=== PATIENT | female | born 1960 | race Caucasian/White ===

== ENCOUNTER → 2016-11-14 | Outpatient (CLI) | payer BC ==
--- NOTE | 2016-11-15 13:03 | MM ---
Reason for exam: screening (asymptomatic). Last mammogram was performed 1 year and 1 month ago. History: Patient is postmenopausal. Taking estrogen for 7 years beginning at age 46. Physical Findings: A clinical breast exam by your physician is recommended on an annual basis and results should be correlated with mammographic findings. MG 3D Screening Mammo W/Cad Bilateral CC and MLO view(s) were taken. Prior study comparison: October 14, 2015, bilateral MG 3d screening mammo w/cad. October 08, 2014, bilateral MG screening mammo w CAD. The breast tissue is almost entirely fat. No significant changes when compared with prior studies. ASSESSMENT: Negative, BI-RAD 1 RECOMMENDATION: Routine screening mammogram of both breasts in 1 year.
== END | disposition home or self-care (01) ==
LOC: RADMAMWWP 16:23
PROVIDERS: ATTEND Family Medicine
DX: Z12.31 Encounter for screening mammogram for malignant neoplasm of breast (principal)
CPT/HCPCS: 77063; G0202

== ENCOUNTER → 2016-12-26 | Outpatient (CLI) | payer BC ==
--- NOTE | 2016-12-26 12:42 | MR ---
EXAMINATION TYPE: MR knee RT wo con DATE OF EXAM: 12/26/2016 COMPARISON: NONE HISTORY: rt knee pain per order. Inner knee pain with swelling for 4 weeks per patient. TECHNIQUE: Multiplanar, multisequence images of the knee is performed without IV contrast. FINDINGS: MEDIAL MENISCUS: Anterior horn is intact without tear. Oblique increased signal posterior horn of med ial meniscus extends to inferior articular surface seen best on sagittal image 8, findings are consis tent with full-thickness meniscal tear. Slight medial extrusion of medial meniscus is present. LATERAL MENISCUS: Anterior and posterior horns are intact without tear. CRUCIATE LIGAMENTS: The anterior and posterior cruciate ligaments are intact and unremarkable. COLLATERAL LIGAMENTS: The medial collateral ligament and lateral collateral ligament complex are inta ct. Increased fluid signal surrounds medial collateral ligament particularly mid to distal aspects. EXTENSOR MECHANISM: Visualized quadriceps and patellar tendons are intact. EFFUSION: There is moderate size suprapatellar joint effusion. POPLITEAL CYST: There is moderate size multi septated popliteal/long cyst measuring just over 6 cm o n long axis on sagittal image 12. TRICOMPARTMENT SPACES: Mild tricompartment joint space loss is present. No significant spurring is se en. CARTILAGE: Small fissuring or chondromalacia patella is present on axial image 15 otherwise tricompar tment articular cartilage is fairly well-maintained. BONE MARROW SIGNAL: No focal abnormal marrow signal is appreciated. OTHER: No additional significant abnormality is appreciated. IMPRESSION: 1. Oblique full-thickness tear posterior horn of medial meniscus. 2. Moderate MCL sprain injury. 3. Moderate suprapatellar joint effusion. 4. Moderate-sized popliteal cyst. 5. Mild tricompartment degenerative changes.
== END | disposition home or self-care (01) ==
LOC: RADMRIMAIN 10:38
PROVIDERS: ATTEND Orthopaedic Surgery
DX: S83.241A Other tear of medial meniscus, current injury, right knee, initial encounter (principal); S83.411A Sprain of medial collateral ligament of right knee, initial encounter; M71.21 Synovial cyst of popliteal space [Baker], right knee; M25.861 Other specified joint disorders, right knee

== ENCOUNTER → 2017-01-10 | Outpatient (CLI) | payer BC ==
[2017-01-10 14:27] LABS: Basophils # (A) 0.1 k/uL (0-0.2); Basophils % (A) 1 %; CH 32.5; CHCM 35.2; Eosinophils # (A) 0.1 k/uL (0-0.7); Eosinophils % (A) 2 %; HCT 38.6 % (34.0-46.0); HGB 13.9 gm/dL (11.4-16.0); Luc # (Auto) 0.15; Luc % (Auto) 2; Lymphocytes # (A) 2.2 k/uL (1.0-4.8); Lymphocytes % (A) 34 %; MCH 33.3 pg (25.0-35.0); MCHC 35.9 g/dL (31.0-37.0); MCV 92.7 fL (80.0-100.0); Mean Platelet Volume 7.1; Monocytes # (A) 0.3 k/uL (0-1.0); Monocytes % (A) 4 %; Neutrophils # (A) 3.7 k/uL (1.3-7.7); Neutrophils % (A) 57 %; RBC 4.17 m/uL (3.80-5.40); RDW 13.4 % (11.5-15.5); WBC 6.4 k/uL (3.8-10.6); WBC (Perox) 6.67
[2017-01-10 14:36] LABS: Potassium 3.7 mmol/L (3.5-5.1)
== END | disposition home or self-care (01) ==
LOC: LABPAT 13:48
PROVIDERS: ATTEND Orthopaedic Surgery
DX: Z01.812 Encounter for preprocedural laboratory examination (principal)
CPT/HCPCS: 80051; 85025

== ENCOUNTER 2017-01-25 08:02 | Day surgery (SDC) | payer BC ==
[2017-01-22 15:39] VITALS: BMI 35.9
[~2017-01-25 08:02] MED LIST: DEXAMETHASONE SOD PHOSPHATE 10 MG/ML 1 ML VIAL IV ONE; LACTATED RINGERS 1,000 ML IV SCH; SCOPOLAMINE 1.5MG/72HR PATCH TRANSDERM ONE; ceFAZolin 2 GM in SODIUM CHLORIDE 0.9% 100 ML IVPB ONE
--- NOTE | 2017-01-25 08:18 | HP ---
CHIEF COMPLAINT: Right knee pain. 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 She notes medial pain and catching, worse with activity. It does slow her down and limits her normal function activities. She has tried medications and injection with only partial temporary relief. PAST MEDICAL HISTORY: Significant for hypertension and hypothyroidism. PAST SURGICAL HISTORY: Significant for hysterectomy in addition to left knee arthroscopy. CURRENT MEDICATIONS: 1. Levothyroxine. 2. Pravastatin. 3. [place]. She denies drug allergies. FAMILY HISTORY: Significant for diabetes, heart disease and hypertension. SOCIAL HISTORY: Significant for social alcohol use. Sixteen point review of systems otherwise reviewed and is noncontributory. On examination, the patient is approximately 5 feet 4 inches, 215 pounds of endomorphic habitus. HEENT exam is nonfocal. Neck is supple. She has painless passive motion of the right hip. Straight leg raise is negative. Active motion of right knee is minus 6 to 120 degrees of flexion. She has a mild effusion. She is tender about the medial joint line. Collaterals are stable. Chandni's negative. Luana's elicits medial pain. Her distal neurovascular exam appears to be intact in the right lower extremity. MRI report 12/26/2016 of the right knee shows a posterior medial meniscal tear. IMPRESSION: 1. Right knee symptomatic medial meniscal tear. 2. Increased body mass index. RECOMMENDATIONS: I talked to the patient at length regarding her treatment options. At this point, she is having significant pain and mechanical symptoms despite conservative measures. After thorough discussion, she options to proceed with surgery. We will plan to proceed with arthroscopic evaluation with probable partial medial meniscectomy. Risks and benefits were discussed at length in layman's terms. We will likely perform that as an outpatient procedure. SALLY
[2017-01-25] MEDS ORDERED: LIDOCAINE 1% 20 ML VIAL (10MG/ML) FOR IV START INTRADERMA ONE (08:32)
[2017-01-25] MEDS: ONDANSETRON 4 MG/2 ML VIAL IVP ONE ×2 (08:33→11:08)
[2017-01-25] MEDS ORDERED: SUCCINYLCHOLINE CHLORIDE 100 MG/5 ML SYR IV ONE (09:38)
[2017-01-25] MEDS ORDERED: LIDOCAINE 1% INJ 10MG/ML (20 ML MDV) ONE (09:38)
[2017-01-25] MEDS ORDERED: MIDAZOLAM 2 MG/2 ML VIAL ONE (09:38)
[2017-01-25] MEDS ORDERED: KETOROLAC 30 MG/ML 1 ML VIAL ONE (09:38)
[2017-01-25] MEDS ORDERED: PROPOFOL 10 MG/ML 20 ML VIAL IV ONE (09:38)
[2017-01-25] MEDS ORDERED: fentaNYL (PF) 50 MCG/ML 2 ML AMP ONE (09:38)
--- NOTE | 2017-01-25 10:21 | P.OP ---
Date of Procedure: 01/25/17 Preoperative Diagnosis: Right knee internal derangement Postoperative Diagnosis: Right knee posterior medial meniscal tear/reactive synovitis of the medial and lateral compartments Procedure(s) Performed: Right knee arthroscopic partial medial meniscectomy/partial synovectomy of the medial and lateral compartments Implants: Anesthesia: JEFFA Surgeon: Loki Lindsey Estimated Blood Loss (ml): 10 Pathology: none sent Condition: stable Disposition: PACU Indications for Procedure: The patient's a 56-year-old female who presents with progressive right knee pain and mechanical symptoms despite conservative treatment. Clinically and by MRI she was noted of evidence of a symptomatic medial meniscal tear. A discussion of the risks and benefits of operative intervention versus continued conservative measures was made with the patient. She opted to proceed with surgery. Operative risks to include infection, neurovascular injury, development of blood clots, possible incomplete resolution of symptoms, possible worsening symptoms and need for subsequent procedures was discussed. Informed consent was obtained. Operative Findings: As below Description of Procedure: The patient was brought to the operating room, and after induction of general anesthesia I examined the right knee. Collaterals were stable, Chandni was negative, and posterior drawer was negative. The right lower extremity was prepped and draped in normal fashion. A superior lateral portal was made through a 3 mm skin incision superior and lateral to the patella. This was used for outflow. A moderate effusion was encountered. A lateral portal was made through a 5 mm vertical skin incision lateral to the patellar tendon above the joint line. Diagnostic arthroscopy was performed. A medial portal was made through a similar incision medial to the patella tendon above the joint line. On inspection of the medial compartment, she was noted of complex tear involving the posterior horn of the medial meniscus in the white-white junction. This was not amenable to repair. This was debrided back to stable base with straight baskets and a motorized shaver. The edges were contoured. Grade 2 chondral changes were noted involving the distal lateral portion of the medial femoral condyle. Reactive synovitis involving the anterior medial and lateral compartments was noted and debrided with a motorized shaver. On inspection the notch, the anterior cruciate ligament appeared to be intact. On inspection of the lateral compartment no significant meniscal or cartilage pathology was noted. On inspection of the patellofemoral articulation, there was some chondromalacia however no loose chondral fragment. The gutters were clear debris. The knee was then thoroughly irrigated. The portals were closed with Steri-Strips. A sterile dressing was applied in addition to a compression stocking. The patient was awoken from general anesthesia and transferred to recovery room in good condition. Blood loss was estimated at 10 mL. No complications were incurred.
[2017-01-25] MEDS: HYDROmorphone 1 MG/ML 1 ML SYRINGE IVP PRN ×6 (10:25→11:01)
[2017-01-25] MEDS: MIDAZOLAM 2 MG/2 ML VIAL IV PRN ×2 (10:30→10:43)
[2017-01-25 10:35] VITALS: RESP 16; TEMP 97.8
[2017-01-25] MEDS ORDERED: SODIUM CHLORIDE 0.9% 1,000 ML IV ONE (10:43)
[2017-01-25] MEDS ORDERED: HYDROcodone/APAP 5-325MG 1 EACH TAB PO ONE (11:45)
[2017-01-25 13:36] VITALS: BP 137/75; PULSE 70
== END 2017-01-25 14:10 | disposition home or self-care (01) ==
LOC: OR 08:02
PROVIDERS: ATTEND Orthopaedic Surgery
DX: S83.241A Other tear of medial meniscus, current injury, right knee, initial encounter (principal); Y93.89 Activity, other specified; M65.861 Other synovitis and tenosynovitis, right lower leg; M25.461 Effusion, right knee; I10 Essential (primary) hypertension; E03.9 Hypothyroidism, unspecified; E78.5 Hyperlipidemia, unspecified; Z86.718 Personal history of other venous thrombosis and embolism; Z79.891 Long term (current) use of opiate analgesic; Z79.1 Long term (current) use of non-steroidal anti-inflammatories (NSAID); Z79.899 Other long term (current) drug therapy; Z87.891 Personal history of nicotine dependence
CPT/HCPCS: 29881; 29876; J2250; J1100; J0690; J2405; J2001; J3010; J1885; J1170; J0330; J2704

== ENCOUNTER → 2017-07-18 | Outpatient (CLI) | payer BC ==
--- NOTE | 2017-07-18 08:23 | MR ---
EXAMINATION TYPE: MR thoracic spine wo con DATE OF EXAM: 07/18/2017 COMPARISON: NONE HISTORY: 56-year-old female Back pain TECHNIQUE: Multiplanar, multisequence images of the thoracic spine were obtained without IV contrast. FINDINGS: Vertebral body heights are preserved and alignment is maintained. Vertebral mild disc desiccation throughout. No large focal disc herniation. However, tiny disc protrusions are present, such as at T5-T6, T7-T8, T11-T12, and T12-L1. No significant spinal canal stenosis. Scattered facet arthropathies present. Changes result in mild neuroforaminal narrowing on the left at T6-T7 and T7-T8. Scattered fatty matrix hemangiomas are present such as within T3, T5, T7, T8, and T10 vertebral glendy s. No suspicious bone marrow replacement. No prevertebral or paravertebral soft tissue abnormality seen. Normal course and caliber of the thoracic spinal cord. Some artifact projects over the upper third th oracic cord without any abnormal cord signal confirmed on the axial series. IMPRESSION: 1. Mild multilevel degenerative disc disease. There are a few tiny disc protrusions without spinal ca nal stenosis. 2. Mild scattered facet arthropathy. Changes result in mild left-sided neuroforaminal stenosis at C6- C7 and T7-T8. 3. Incidentally, the T2 sagittal counting series shows a focal disc herniation or disc osteophyte com plex, largest at C5-C6 impressing on the ventral cervical cord.
== END | disposition home or self-care (01) ==
LOC: RADMRIMAIN 07:08
PROVIDERS: ATTEND Family Medicine
DX: M51.34 Other intervertebral disc degeneration, thoracic region (principal); M51.24 Other intervertebral disc displacement, thoracic region; M46.94 Unspecified inflammatory spondylopathy, thoracic region; M99.72 Connective tissue and disc stenosis of intervertebral foramina of thoracic region
CPT/HCPCS: 72146

== ENCOUNTER → 2017-08-02 | Outpatient (CLI) | payer BC ==
--- NOTE | 2017-08-02 12:15 | BD ---
EXAMINATION TYPE: MG DEXA axial skeleton. DATE OF EXAM: 08/02/2017 COMPARISON: NONE CLINICAL HISTORY: M85.88 Disorder of bone Height: 64 Weight: 200.7 FRAX RISK QUESTIONS: Alcohol (3 or more units per day): no Family History (Parent hip fracture): no Glucocorticoids (More than 3mos): no (Ex: prednisone, prednisolone, methylprednisolone, dexamethasone, and hydrocortisone). History of Fracture in Adulthood: no Secondary Osteoporosis: 1. Type 1 Diabetes: no 2. Hyperthyroidism: no 3. Menopause before 45: no 4. Malnutrition: no 5. Chronic liver disease: no Rheumatoid Arthritis: no Current Tobacco Use: no RISK FACTORS HISTORY OF: Hip Fracture (Right/Left): no Spine Fracture: no History of Wrist Fracture: no Surgery to Spine/Hip(right/left)/Wrist (right/left): no Family History of Osteoporosis: no Active: yes Diet low in dairy products/other sources of calcium: no Postmenopausal woman: age 46 complete hysterectomy Lost more than 2 inches in height since high school: no Frequent falls: no Poor Health: no Hyperparathyroidism: no Adrenal Insufficiency: no MEDICATIONS: synthroid- 10 years prevastatin, hydrochloride, Additional History: EXAM MEASUREMENTS: Bone mineral densitometry was performed using the [employer] System. Bone mineral density as measured about the Lumbar spine is: ----- L1-L4(G/cm2): 1.266 T Score Values are as follows: ----- L2: 0.3 ----- L3: 1.5 ----- L4: 1.2 ----- L1-L4: 0.7 Bone mineral density baseline Bone mineral density about the R hip (g/cm2): 0.908 Bone mineral density about the L hip (g/cm2): 0.935 T Score values are as follows: -----R Neck: -0.9 -----L Neck: -0.7 -----R Total: -0.1 -----L Total: 0.1 Bone mineral density baseline IMPRESSION: No evidence for osteoporosis or osteopenia. NOTE: T-SCORE=SD OF THE YOUNG ADULT MEAN.
== END | disposition home or self-care (01) ==
LOC: RADBDWWP 09:52
PROVIDERS: ATTEND Family Medicine
DX: M85.88 Other specified disorders of bone density and structure, other site (principal)
CPT/HCPCS: 77080

== ENCOUNTER → 2017-10-01 | Outpatient (CLI) | payer BC ==
--- NOTE | 2017-10-01 13:50 | MR ---
EXAMINATION TYPE: MR cervical spine wo con DATE OF EXAM: 10/01/2017 COMPARISON: NONE HISTORY: 56-year-old female with pain, Cervicalgia / Radiculopathy, cervical TECHNIQUE: Multiplanar, multisequence images of the cervical spine were acquired. Findings: No craniocervical junction abnormality, predental space widening, or prevertebral soft tissue swellin g. Normal alignment of the cervical spine. Scattered facet and uncovertebral joint degenerative change. Variable mild to moderate disc desiccati on throughout. Disc osteophyte complex present particularly at C5-C6 and C6-C7. Findings are superimposed on a mild congenital spinal canal stenosis with AP canal dimension of 1 cm. At C2-C3, mild facet arthropathy without significant canal or foraminal stenosis. C3-C4, there is facet arthropathy and right-sided uncovertebral joint spurring. Changes result in mil d right-sided neural foraminal stenosis. Mild posterior disc bulge accentuates the mild canal stenosi s. At C4-C5, posterior disc bulge with facet degenerative change. There is a mild overall spinal canal s tenosis with abutment and slight indentation of the ventral cord but no vaishnavi canal compromise. Mild right-sided neural foraminal stenosis. At C5-C6, there is facet and uncovertebral joint degenerative change with disc osteophyte complex and superimposed large left paracentral disc extrusion. This contributes to a moderate spinal canal sten osis with AP canal dimension of 5.8 mm prominently indenting the ventral cord especially the left lat eral ventral cord. There is moderate right and mild left neuroforaminal stenosis. At C6-C7, broad-based disc osteophyte complex contiguous with uncovertebral joint arthropathy. Additi onal facet degenerative change. Changes cause a mild to moderate overall spinal canal stenosis. There is abutment of the ventral cord without cord deformity. Mild to moderate left and moderate right mane ral foraminal stenosis. At C7-T1, facet degenerative change without significant canal or foraminal stenosis. No prevertebral or paravertebral soft tissue abnormality seen. IMPRESSION: 1. Moderate degenerative disc disease. Additional scattered facet and uncovertebral joint arthropathy . Changes are superimposed on a mild congenital spinal canal stenosis. 2. Broad-based disc osteophyte complex with a large superimposed left paracentral disc extrusion at C 5-C6 contributes to moderate spinal canal stenosis (AP canal dimension narrowed to 5.8 mm). There is prominent indentation of the ventral cord here. No myelopathic cord signal change. 3. Moderate right and mild left neuroforaminal stenosis at this level. 4. Broad-based disc osteophyte complex at C6-C7 contribute to a mild to moderate spinal canal stenosi s. Mild to moderate left and moderate right neural foraminal stenosis.
== END | disposition home or self-care (01) ==
LOC: RADMRIMAIN 12:01
PROVIDERS: ATTEND Family Medicine
DX: M48.02 Spinal stenosis, cervical region (principal); M99.71 Connective tissue and disc stenosis of intervertebral foramina of cervical region; M50.11 Cervical disc disorder with radiculopathy, high cervical region; M50.10 Cervical disc disorder with radiculopathy, unspecified cervical region; M46.92 Unspecified inflammatory spondylopathy, cervical region
CPT/HCPCS: 72141

== ENCOUNTER → 2017-11-07 | Outpatient (CLI) | payer BC ==
[2017-11-07 13:17] VITALS: BP 148/86; PULSE 86; RESP 16
--- NOTE | 2017-11-07 14:04 | P.CON ---
Consult Note - . Consult date: 11/07/17 Assessment/Plan:: History and physical: This is a 57-year-old female who presents as a new patient to the [facility] pain clinic. Patient was referred by her primary care doctor. Patient's chief complaint is cervical spine pain radiating down her left arm. Patient states that she has noticed the pain for the past 4-5 months and has progressively been getting worse. Patient has noted that she has some mild left arm weakness with certain activities, she has radiating pain down into her fingers 1-2 times daily. She states the pain as a 5/10 at its worse and gets better with rest and massage. Patient's PCP prescribes her Motrin 600 mg to be taken one to 3 times daily which helps. Her PCP referred her to our clinic in order to do a series of cervical epidural steroid injections. Patient had an MRI of her cervical spine done recently that showed disc osteophyte complex superimposed on a large left paracentral disc extrusion with moderate spinal canal stenosis. These MRI findings correlate with patient's physical exam findings. Discussed cervical epidural injections with the patient the risks and benefits and also discussed with her that if her condition did not improve with the series of epidural injections we would likely refer her for surgical consultation. Patient understands this plan and wishes to proceed. Patient also has complaints of right knee pain, and was diagnosed with right knee osteoarthritis by her PCP. She has had steroid injections are needed have provided her with good relief. Pain in her knee is a 5/10 in severity and she describes it as throbbing, aching, and tight. Patient does not have any complaints of lower shoddy weakness, spasticity, flaccid paralysis, no bowel or bladder dysfunction, and no cauda equina signs or symptoms. In addition to above, 13-point review of systems is also negative for chest pain , shortness of breath, changes in vision, changes in hearing, new onset weakness , abdominal pain, diarrhea, extreme fatigue, malaise, fever, skin changes, homicidal or suicidal ideation, or bowel or bladder incontinence. 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 Assessment: 1. Cervical spinal stenosis 2. Cervical radiculopathy 3. Right knee osteoarthritis Plan: 1. Explanation: Diagnoses, prognoses, and multiple treatment options including but not limited to physical therapy, interventional therapies, adjuvant medical therapies, narcotic medication therapies, and surgery were discussed with the patient and all questions were answered to the patient's satisfaction. 2. Opioid agreement: No opiates prescribed 3. Counseling: The patient was counseled extensively on BODY MASS INDEX, EXERCISE. Specifically, the patient was instructed regarding, obesity, and exercise in the context of both chronic pain and overall health. 4. Procedures: Cervical epidural steroid injection C6-C7 5. Consultations: Possible future referral to Dr. Carias 6. Investigations: Maps reviewed and appropriate 7. Medications: Motrin 600 mg from PCP, prescribed Neurontin 300 mg daily at bedtime 8. Disposition: f/u for procedure as scheduled PQRS measures: 1-Patient's medications are documented in the chart. 2-Tobacco use is negative, counseling given 3-Patient has not had a pneumococcal vaccine. 4-Advanced care planning discussed, patient unable to give. 5-Opioid contract signed with the patient. 6-Pain positive, follow-up visit or procedure scheduled 7-Patient's blood pressure measured and documented, and WNL. 8-Patient's weight was measured, and body mass index ABOVE the normal limits, and counseling was done. Patient instructed to follow up with PCP. 9-Patient WAS NOT identified as an unhealthy alcohol user.
== END | disposition home or self-care (01) ==
LOC: PNWHC3 12:32
PROVIDERS: ATTEND Anesthesiology
DX: M48.02 Spinal stenosis, cervical region (principal); M54.12 Radiculopathy, cervical region; M17.11 Unilateral primary osteoarthritis, right knee; Z79.1 Long term (current) use of non-steroidal anti-inflammatories (NSAID)
CPT/HCPCS: 99211

== ENCOUNTER 2017-11-12 07:07 | Day surgery (SDC) | payer BC ==
[2017-11-07 15:39] VITALS: BMI 35.5
[2017-11-12] MEDS ORDERED: LACTATED RINGERS 1,000 ML IV SCH (07:30)
[2017-11-12] MEDS ORDERED: LACTATED RINGERS 1,000 ML IV ONE (08:25)
[2017-11-12] MEDS ORDERED: LIDOCAINE 1% 20 ML VIAL (10MG/ML) FOR IV START INTRADERMA ONE (08:26)
[2017-11-12 08:34] VITALS: RESP 18; TEMP 98.3
[2017-11-12] MEDS ORDERED: KETOROLAC 30 MG/ML 1 ML VIAL IVP STA (09:03)
[2017-11-12 09:34] VITALS: BP 144/80; PULSE 75
[2017-11-12] MEDS ORDERED: IV FLUID CONTINUATION 1,000 ML IV ONE (09:56)
--- NOTE | 2017-11-12 10:52 | P.PN ---
Progress Note - Text Progress Note Date: 11/12/17 PREOPERATIVE DIAGNOSIS: Cervical radiculopathy. POSTOPERATIVE DIAGNOSIS: Cervical radiculopathy. PROCEDURE 1. Cervical epidural steroid injection under fluoroscopic guidance, C7-T1 level. 2. Cervical epidurogram. ANESTHESIA: Local anesthesia with 1% lidocaine and IV sedation with versed/ fentanyl. EBL: Minimal PROCEDURE INDICATION: The patient with neck pain and radiculitis unresponsive to conservative treatment consents for procedure, JUAN #1 today. No use of blood thinners. PROCEDURE DESCRIPTION / TECHNIQUE: The patient was seen and identified in the preoperative area. Risks, benefits, complications, and alternatives were discussed with the patient (including but not limited to incomplete pain relief, bleeding, infection, nerve damage, and allergies to medications), the patient agreed to proceed with the procedure and signed the consent after all questions were answered. Patient was taken to the OR and time out was completed to verify proper patient , position, laterality of pain, and allergies. Pt was placed in the prone position. A pillow was placed under the patients chest to increase the cervical interlaminar space. The cervical area was prepped and draped in the usual sterile fashion. Critical pause was taken. Vital signs were closely monitored during the procedure. Conscious sedation was used during the procedure to decrease patients anxiety. Using anterior-posterior fluoroscopy, the C7-T1 interlaminar space was identified and the skin over this site was marked and then infiltrated with 1% lidocaine subcutaneously in a paramedian fashion. Subsequently, a 20-gauge 3-1/2 -inch Tuohy epidural needle was inserted and advanced toward the epidural space by means of the loss of resistance technique and guided by AP and lateral fluoroscopy. After negative aspiration for blood or CSF and in the absence of paresthesias, the correct needle position in the epidural space was verified with the injection of 1 mL of the water soluble contrast dye Isovue 200 and observing an excellent epidurogram with the epidural spread of the dye, after negative aspiration for blood and CSF and in the absence of paresthesias. Again after negative aspiration, a 4 ml mixture containing 20 mg of Decadron and 2 ml of preservative free Normal Saline solution was injected and a washout of epidurogram was seen. Needle was withdrawn intact, skin was cleansed, and bandages were applied. COMPLICATIONS: None COMMENTS: DISPOSITION / PLANS: The patient was placed in a supine position and transferred to the recovery area in a stable condition for observation. There was no evidence of upper extremity motor or sensory deficit after the procedure. Patient was discharged from the recovery room after meeting discharge criteria. Home discharge instructions were given to the patient by the staff. The patient was reexamined prior to discharge. The patient will schedule a repeat procedure in 3-4 weeks.
--- NOTE | 2017-11-13 13:59 | FL ---
Fluoroscopy INDICATION: Pain FINDINGS: Fluoroscopy time: 22 seconds. Images obtained: 3. IMPRESSIONS: 1. Documentation of fluoroscopy.
== END 2017-11-12 09:57 | disposition home or self-care (01) ==
LOC: ORPAIN 07:07
PROVIDERS: ATTEND Anesthesiology
DX: M54.12 Radiculopathy, cervical region (principal); Z79.1 Long term (current) use of non-steroidal anti-inflammatories (NSAID); M48.02 Spinal stenosis, cervical region; M17.11 Unilateral primary osteoarthritis, right knee
CPT/HCPCS: 62321; J2250; J1100; J3010; J1885; Q9966; 99152

== ENCOUNTER → 2017-12-03 | Outpatient (CLI) | payer BC ==
--- NOTE | 2017-12-03 13:04 | P.PN ---
Progress Note - Text Progress Note Date: 12/03/17 Patient returns for followup for chronic neck and right shoulder pain with radiation to XXX. Patient recently underwent JUAN #1, which has provided relief for interval since procedure in LUE, but patient still has right shoulder pain. Patient continues on occasional [place] medications for pain with good relief. Patient denies adverse drug effects from medications. Today, pt denies new-onset weakness, bowel/bladder incontinence, or any other signs or symptoms of cauda equina syndrome. There are no signs of acute intoxication, and no indications of medication diversion or overuse. In addition to above, 13-point review of systems is also negative for chest pain , shortness of breath, changes in vision, changes in hearing, new onset weakness , abdominal pain, diarrhea, extreme fatigue, malaise, fever, skin changes, homicidal or suicidal ideation, or bowel or bladder incontinence. Vital Signs: Reviewed in EMR Gen: WDWN, AAOx3, NAD HEENT: NCAT, EOMI, hearing grossly normal Pulm: resp unlabored Abd: soft, NT, ND Neck: supple, trachea midline ROM in flexion cervical spine: reduced ROM in extension cervical spine: reduced Cervical paravertebral tenderness: + Cervical Facet tenderness: + bilateral Spurling's: +LUE TTP over R scapula Imaging: Reviewed in EMR Assessment: 1. cervical radiculitis 2. myofascial pain syndrome 3. chronic pain syndrome Plan: 1. Explanation: Opioid and psychological risk scores were reviewed. Diagnoses , prognoses, and multiple treatment options including but not limited to physical therapy, interventional therapies, adjuvant medical therapies, narcotic medication therapies, and surgery were discussed with the patient and all questions were answered to the patient's satisfaction. 2. Opioid agreement: none prescribed 3. Counseling: The patient was counseled extensively on SMOKING CESSATION, BODY MASS INDEX, EXERCISE. Specifically, the patient was instructed regarding the importance of smoking cessation, weight control, and exercise in the context of both chronic pain and overall health. 4. Procedures: R shoulder TPI 5. Consultations: None 6. Investigations: UDS not done, MAPS queried and appropriate 7. Medications: none prescribed, patient told to stop gabapentin 8. Morphine equivalents per day prescribed: zero 9. Disposition: f/u for procedure as scheduled
[2017-12-03 13:16] VITALS: BP 137/90; PULSE 68; RESP 16
== END | disposition home or self-care (01) ==
LOC: PNWHC3 11:56
PROVIDERS: ATTEND Anesthesiology
DX: G89.4 Chronic pain syndrome (principal); M54.2 Cervicalgia; M25.511 Pain in right shoulder; M54.12 Radiculopathy, cervical region; M79.1 Myalgia; Z98.890 Other specified postprocedural states; Z79.891 Long term (current) use of opiate analgesic
CPT/HCPCS: 99211

== ENCOUNTER 2017-12-31 07:27 | Day surgery (SDC) | payer BC ==
[2017-12-25 09:54] VITALS: BMI 32.9
[2017-12-31] MEDS ORDERED: LACTATED RINGERS 1,000 ML IV SCH (07:45)
[2017-12-31 08:18] VITALS: TEMP 97.6
[2017-12-31] MEDS ORDERED: LIDOCAINE 1% 20 ML VIAL (10MG/ML) FOR IV START INTRADERMA ONE (08:26)
--- NOTE | 2017-12-31 09:06 | P.PCN ---
Date of Procedure: 12/31/17 Surgeon: Stephen Jacobson Pathology: none sent Condition: stable Disposition: PACU Description of Procedure: Trigger point injections in subscapularis, thoracic paraspinal muscles, and rhomboid muscles x 10 ANESTHESIA: Local with 1% lidocaine; conscious sedation EBL: Minimal PROCEDURE INDICATION: Patient with severe muscle spasm and trigger points unresponsive to conservative therapy. Pt does not take any blood thinning medications. PROCEDURE DESCRIPTION: The patient was seen and identified in the preoperative area. Risks, benefits, complications, and alternatives were discussed with the patient (including but not limited to incomplete pain relief, bleeding, infection, nerve damage, and allergies to medications), the patient agreed to proceed with the procedure and signed the consent after all questions were answered. Trigger points were marked in preoperative area. Patient was taken to the OR and time out was completed to verify proper patient , position, laterality of pain, and allergies. Pt was placed in the sitting position. The relevant area was prepped and draped in the usual sterile fashion. The area over the myofascial spasm was prepped with Chloraprep utilizing sterile technique. After localization, the 25-gauge 1.5" needle was placed in the center of each of the spastic areas and aspirations were performed, which were negative. 1 ml of a 7 ml combination of 6 ml 0.5% PF bupivacaine and 40 mg Kenalog was injected into each trigger point. The patient tolerated the procedure well and had relief by the time the block had set. Needle was withdrawn intact after each injection. At the end of the procedure, the skin was cleansed and bandages were applied. COMPLICATIONS: None. DISPOSITION/PLAN: The patient was taken to the recovery area after the procedure in a stable condition for observation. Patient was reexamined prior to discharge and there were no issues. Patient was discharged home, accompanied by an adult, after meeting discharged criteria. Discharge instructions were give to the patient by the staff. Patient was specifically instructed not to drive today and to rest for the rest of the day. Patient will follow up in clinic in 4-6 weeks.
[2017-12-31] MEDS ORDERED: IV FLUID CONTINUATION 1,000 ML IV ONE ×2 (09:07)
[2017-12-31 09:26] VITALS: BP 133/82; PULSE 72; RESP 18
== END 2017-12-31 09:42 | disposition home or self-care (01) ==
LOC: ORPAIN 07:27
PROVIDERS: ATTEND Anesthesiology
DX: G89.4 Chronic pain syndrome (principal); M62.830 Muscle spasm of back
CPT/HCPCS: 20553; J2250; J3301; J2001; 99152

== ENCOUNTER → 2018-01-28 | Outpatient (CLI) | payer BC ==
[2018-01-28 15:06] VITALS: BP 154/101; PULSE 76; RESP 16
--- NOTE | 2018-01-28 15:18 | P.PN ---
Progress Note - Text Progress Note Date: 01/28/18 Patient returns for followup for chronic neck and right shoulder pain. Patient recently underwent JUAN #1 as well as trigger point injections. Patient had good relief with cervical epidural steroid injection, however still has complaints of right shoulder pain. She then underwent trigger point injections of the trapezius and rhomboid muscles which provided her with 12 days of relief. 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 Patient continues on occasional [place] medications for pain with good relief. Patient denies adverse drug effects from medications. Today, pt denies new-onset weakness, bowel/bladder incontinence, or any other signs or symptoms of cauda equina syndrome. There are no signs of acute intoxication, and no indications of medication diversion or overuse. In addition to above, 13-point review of systems is also negative for chest pain , shortness of breath, changes in vision, changes in hearing, new onset weakness , abdominal pain, diarrhea, extreme fatigue, malaise, fever, skin changes, homicidal or suicidal ideation, or bowel or bladder incontinence. Vital Signs: Reviewed in EMR Gen: WDWN, AAOx3, NAD HEENT: NCAT, EOMI, hearing grossly normal Pulm: resp unlabored Abd: soft, NT, ND Neck: supple, trachea midline ROM in flexion cervical spine: reduced ROM in extension cervical spine: reduced Cervical paravertebral tenderness: + Cervical Facet tenderness: + bilateral Spurling's: +LUE TTP over R scapula Imaging: Reviewed in EMR Assessment: 1. cervical radiculitis 2. myofascial pain syndrome 3. chronic pain syndrome Plan: 1. Explanation: Opioid and psychological risk scores were reviewed. Diagnoses , prognoses, and multiple treatment options including but not limited to physical therapy, interventional therapies, adjuvant medical therapies, narcotic medication therapies, and surgery were discussed with the patient and all questions were answered to the patient's satisfaction. 2. Opioid agreement: none prescribed 3. Counseling: The patient was counseled extensively on SMOKING CESSATION, BODY MASS INDEX, EXERCISE. Specifically, the patient was instructed regarding the importance of smoking cessation, weight control, and exercise in the context of both chronic pain and overall health. 4. Procedures: Trigger point injections of the rhomboid and trapezius muscles 5. Consultations: None 6. Investigations: UDS not done, MAPS queried and appropriate 7. Medications: none prescribed, patient told to stop brock pentin 8. Morphine equivalents per day prescribed: zero 9. Disposition: f/u for procedure as scheduled
== END | disposition home or self-care (01) ==
LOC: PNWHC3 14:01
PROVIDERS: ATTEND Anesthesiology
DX: G89.4 Chronic pain syndrome (principal); M54.12 Radiculopathy, cervical region; M79.1 Myalgia; Z79.891 Long term (current) use of opiate analgesic
CPT/HCPCS: 99211

== ENCOUNTER 2018-02-06 07:10 | Day surgery (SDC) | payer BC ==
[2018-01-30 11:31] VITALS: BMI 32.9
[~2018-02-06 07:10] MED LIST changes: -DEXAMETHASONE SOD PHOSPHATE 10 MG/ML 1 ML VIAL IV ONE; -SCOPOLAMINE 1.5MG/72HR PATCH TRANSDERM ONE; -ceFAZolin 2 GM in SODIUM CHLORIDE 0.9% 100 ML IVPB ONE
[2018-02-06 07:25] VITALS: RESP 16; TEMP 97.4
[2018-02-06] MEDS ORDERED: LIDOCAINE 1% 20 ML VIAL (10MG/ML) FOR IV START INTRADERMA ONE (07:32)
[2018-02-06] MEDS ORDERED: IV FLUID CONTINUATION 1,000 ML IV ONE (07:55)
--- NOTE | 2018-02-06 08:02 | P.PCN ---
Date of Procedure: 02/06/18 Procedure(s) Performed: Preoperative diagnoses= 1-myofascial pain syndrome Postoperative diagnoses= same as preoperative diagnosis. Procedure= Right trapezius muscle ,and rhomboid muscles steroid injection ( 2 trigger points ) Anesthesia= moderate sedation with Versed 1 mg and fentanyl 50 micrograms. Estimated blood loss=minimal. Procedure indication= the patient had a history of severe chronic upper back pain and shoulder blade area patient diagnosed with myofascial pain syndrome in the trapezius muscle and rhomboid muscle and she is here to have trigger point injections Procedure description= the patient was seen and identified in the preoperative holding area, risks and benefits and alternative of the procedure and possible complications discussed with the patient, and he agreed with the preceding, patient signed the consent, an IV was started, and vital signs were monitored and were stable throughout the procedure, patient sitting position, the back in the upper back area prepped with chlorhexidine 3, under sterile technique using 25-gauge needle mixture of ropivacaine 0.5% 6 mL mixed with 40 mg of Kenalog, 3 ML of the mixture injected at each trigger point, right trapezius muscle and at the right rhomboid muscle, injection done after negative aspiration and there was no paresthesia during the injection ,Patient tolerated the procedure well without any complication, The patient returned to supine position after the back was cleaned and a Band- Aid applied, the patient transported to recovery room in stable condition and he was monitored for 30 minutes before he was discharged home and then patient was reexamined before going home and patient was discharged in stable condition and patient will follow up with the pain clinic in a few weeks
[2018-02-06] MEDS ORDERED: IBUPROFEN 200 MG TAB PO ONE (08:28)
[2018-02-06] MEDS ORDERED: hydrALAZINE HCL 20 MG/ML 1 ML VIAL IVP ONE (09:01)
[2018-02-06 09:36] VITALS: BP 143/86; PULSE 79
== END 2018-02-06 10:02 | disposition home or self-care (01) ==
LOC: ORPAIN 07:10
PROVIDERS: ATTEND Specialist
DX: M79.1 Myalgia (principal); D68.2 Hereditary deficiency of other clotting factors
CPT/HCPCS: 20552; J2250; J0360; J3301; J3010; 20553

== ENCOUNTER → 2018-03-04 | Outpatient (CLI) | payer BC ==
[2018-03-04 14:38] VITALS: BP 144/86; PULSE 89; RESP 16; TEMP 98.4
--- NOTE | 2018-03-04 14:55 | P.PN ---
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 The patient had cervical epidural steroid injection and trigger point injection in the cervical paravertebral musculature and also in the trapezius muscles and she is doing very well at this point her pain is 1 out of 10 on a scale from 0-10. He denies any numbness in her arms or any weakness. She also denies any bowel or bladder dysfunction. Today, pt denies new-onset weakness, bowel/bladder incontinence, or any other signs or symptoms of cauda equina syndrome. There are no signs of acute intoxication, and no indications of medication diversion or overuse. In addition to above, 13-point review of systems is also negative for chest pain , shortness of breath, changes in vision, changes in hearing, new onset weakness , abdominal pain, diarrhea, extreme fatigue, malaise, fever, skin changes, homicidal or suicidal ideation, or bowel or bladder incontinence. Vital Signs: Reviewed in EMR Gen: AAOx3, NAD HEENT: PERRLA,hearing grossly normal Pulm: resp unlabored,CTA Heart:S1,S2, No [place] Neck: supple, trachea midline Neuro exam of the upper extremities: Shows normal and symmetrical muscle strength and normal biceps tendon reflexes however are absent triceps reflexes bilaterally. She has no tenderness around her right shoulder blades which usually she gets that pain at Neuro: CN II-XII grossly intact, Imaging: Reviewed in EMR/chart Assessment: Cervical spondylosis without myelopathy Myofascial pain Plan: 1. Explanation: Opioid and psychological risk scores were reviewed. Diagnoses , prognoses, and multiple treatment options including but not limited to physical therapy, interventional therapies, adjuvant medical therapies, narcotic medication therapies, and surgery were discussed with the patient and all questions were answered to the patient's satisfaction. 2. Opioid agreement: No opioids prescribed 3. Counseling: The patient was counseled extensively on SMOKING CESSATION, BODY MASS INDEX, EXERCISE. Specifically, the patient was instructed regarding the importance of smoking cessation, obesity, and exercise in the context of both chronic pain and overall health. 4. Procedures: None at this point 5. Consultations: None 6. Investigations: None 7. Medications: Patient is taking Motrin [id number] 8. Disposition: Return to clinic on an as-needed basis Objective - Vital Signs Vital signs: Vital Signs Temp 98.4 F 03/04/18 14:33 Pulse 89 03/04/18 14:33 Resp 16 03/04/18 14:33 BP 144/86 03/04/18 14:33 Pulse Ox Intake & Output 03/03/18 03/04/18 03/04/18 18:59 06:59 18:59 Weight 89.358 kg
== END | disposition home or self-care (01) ==
LOC: PNWHC3 14:17
PROVIDERS: ATTEND Anesthesiology
DX: M47.812 Spondylosis without myelopathy or radiculopathy, cervical region (principal); M79.1 Myalgia; Z79.1 Long term (current) use of non-steroidal anti-inflammatories (NSAID)
CPT/HCPCS: 99211

== ENCOUNTER → 2018-04-14 | Outpatient (CLI) | payer BC ==
--- NOTE | 2018-04-15 09:23 | MM ---
Reason for exam: screening (asymptomatic). Last mammogram was performed 1 year and 5 months ago. History: Patient is postmenopausal. Taking estrogen for 7 years beginning at age 46. Physical Findings: A clinical breast exam by your physician is recommended on an annual basis and results should be correlated with mammographic findings. MG 3D Screening Mammo W/Cad Bilateral CC and MLO view(s) were taken. Prior study comparison: November 14, 2016, bilateral MG 3d screening mammo w/cad. October 14, 2015, bilateral MG 3d screening mammo w/cad. The breast tissue is almost entirely fat. No significant changes when compared with prior studies. ASSESSMENT: Negative, BI-RAD 1 RECOMMENDATION: Routine screening mammogram of both breasts in 1 year.
== END ==
LOC: RADMAMWWP 07:23
PROVIDERS: ATTEND Family Medicine
DX: Z12.31 Encounter for screening mammogram for malignant neoplasm of breast (principal)
CPT/HCPCS: 77063; 77067

== ENCOUNTER → 2019-05-26 | Outpatient (CLI) | payer BC ==
--- NOTE | 2019-05-29 10:52 | MM ---
Reason for exam: screening (asymptomatic). Last mammogram was performed 1 year and 1 month ago. History: Patient is postmenopausal. Taking estrogen for 7 years beginning at age 46. Physical Findings: A clinical breast exam by your physician is recommended on an annual basis and results should be correlated with mammographic findings. MG 3D Screening Mammo W/Cad Bilateral CC and MLO view(s) were taken. Prior study comparison: April 14, 2018, bilateral MG 3d screening mammo w/cad. November 14, 2016, bilateral MG 3d screening mammo w/cad. There are scattered fibroglandular densities. No significant changes when compared with prior studies. ASSESSMENT: Benign, BI-RAD 2 RECOMMENDATION: Routine screening mammogram of both breasts in 1 year.
== END | disposition home or self-care (01) ==
LOC: RADMAMWWP 12:50
PROVIDERS: ATTEND Family Medicine
DX: Z12.31 Encounter for screening mammogram for malignant neoplasm of breast (principal)
CPT/HCPCS: 77063; 77067

== ENCOUNTER → 2020-06-22 | Outpatient (CLI) | payer BC ==
--- NOTE | 2020-06-22 14:02 | MM ---
Reason for exam: screening (asymptomatic). Last mammogram was performed 1 year and 1 month ago. History: Patient is postmenopausal. Taking estrogen for 7 years beginning at age 46. Physical Findings: A clinical breast exam by your physician is recommended on an annual basis and results should be correlated with mammographic findings. MG 3D Screening Mammo W/Cad Bilateral CC and MLO view(s) were taken. Prior study comparison: May 26, 2019, bilateral MG 3d screening mammo w/cad. April 14, 2018, bilateral MG 3d screening mammo w/cad. There are scattered fibroglandular densities. There are benign appearing round calcifications bilaterally. There is no discrete abnormality. ASSESSMENT: Benign, BI-RAD 2 RECOMMENDATION: Routine screening mammogram of both breasts in 1 year.
== END | disposition home or self-care (01) ==
LOC: RADMAMWWP 08:15
PROVIDERS: ATTEND Family Medicine
DX: Z12.31 Encounter for screening mammogram for malignant neoplasm of breast (principal)
CPT/HCPCS: 77063; 77067

== ENCOUNTER 2021-07-07 09:04 | Day surgery (SDC) | payer BC ==
[2021-07-05 12:47] VITALS: BMI 28.7
[2021-07-07 09:22] VITALS: TEMP 97.8
[2021-07-07] MEDS ORDERED: LIDOCAINE 1% INJ 10MG/ML (20 ML MDV) ONE (10:32)
[2021-07-07] MEDS ORDERED: PROPOFOL 10 MG/ML 20 ML VIAL IV ONE (10:32)
--- NOTE | 2021-07-07 10:47 | P.PCN ---
Date of Procedure: 07/07/21 Procedure(s) Performed: BRIEF HISTORY: Patient is a 60-year-old pleasant female scheduled for an elective colonoscopy as a part of variation of prior history of colon polyps. Last colonoscopy was 5 years ago. PROCEDURE PERFORMED: Colonoscopy. PREOPERATIVE DIAGNOSIS: History of colon polyps. IV sedation per Anesthesia. PROCEDURE: After informed consent was obtained, the patient, was brought into the endoscopy unit. IV sedation was administered by Anesthesia under continuous monitoring. Digital rectal examination was normal. Initially the Olympus CF-160 flexible video colonoscope was then inserted in the rectum, gradually advanced into the cecum without any difficulty. Careful examination was performed as the scope was gradually being withdrawn. Ileocecal valve and the appendiceal orifice were visualized and appeared normal. Prep was fair. There was significant sticky noted in the cecum and ascending colon there was thoroughly 80. Mucosa of the cecum, ascending colon, transverse colon, descending colon, sigmoid colon, and rectum appeared normal. Retroflexion was performed in the rectum and no lesions were seen. The patient tolerated the procedure well. IMPRESSION: Normal-appearing colon from rectum to cecum with no evidence of colitis or colorectal neoplasia . RECOMMENDATIONS: Findings of this examination were discussed with the patient as well as a family. She was advised to have a repeat colonoscopy in 5 years from now because of the prior history of colon.
[2021-07-07] MEDS ORDERED: LACTATED RINGERS 1,000 ML IV ONE (10:51)
[2021-07-07] MEDS ORDERED: IV FLUID CONTINUATION 300 ML IV ONE (10:51)
[2021-07-07 11:06] VITALS: BP 153/93; PULSE 67; RESP 16
== END 2021-07-07 11:20 | disposition home or self-care (01) ==
LOC: ORWHC2ENDO 09:04
PROVIDERS: ATTEND Internal Medicine Gastroenterology
DX: Z86.010 Personal history of colon polyps (principal)
CPT/HCPCS: 45378; J2001; J2704

== ENCOUNTER → 2021-08-11 | Outpatient (CLI) | payer BC ==
--- NOTE | 2021-08-14 12:06 | MM ---
Reason for exam: screening (asymptomatic). Last mammogram was performed 1 year and 2 months ago. History: Patient is postmenopausal. Took estrogen for 7 years beginning at age 46. Physical Findings: A clinical breast exam by your physician is recommended on an annual basis and results should be correlated with mammographic findings. MG 3D Screening Mammo W/Cad Bilateral CC and MLO view(s) were taken. Prior study comparison: June 22, 2020, bilateral MG 3d screening mammo w/cad. May 26, 2019, bilateral MG 3d screening mammo w/cad. There are scattered fibroglandular densities. No significant changes when compared with prior studies. ASSESSMENT: Benign, BI-RAD 2 RECOMMENDATION: Routine screening mammogram of both breasts in 1 year.
== END | disposition home or self-care (01) ==
LOC: RADMAMWWP 08:35
PROVIDERS: ATTEND Family Medicine
DX: Z12.31 Encounter for screening mammogram for malignant neoplasm of breast (principal); Z78.0 Asymptomatic menopausal state
CPT/HCPCS: 77063; 77067

== ENCOUNTER → 2021-08-18 | Outpatient (CLI) | payer BC ==
--- NOTE | 2021-08-18 15:21 | BD ---
EXAMINATION TYPE: Axial Bone Density DATE OF EXAM: 08/18/2021 COMPARISON: 2017 CLINICAL HISTORY: ASYMPTOMATIC PREMATURE MENOPAUSE Height: 5'3 /2 Weight: 177 FRAX RISK QUESTIONS: early menopause Secondary Osteoporosis: RISK FACTORS HISTORY OF: Postmenopausal woman: y MEDICATIONS: Thyroid Medications: Which medication: Levothyroxine How Lon years Additional Medications: Additional History: EXAM MEASUREMENTS: Bone mineral densitometry was performed using the [employer]kin System. Bone mineral density as measured about the Lumbar spine is: ----- L1-L4(G/cm2): 1.152 T Score Values are as follows: ----- L2: -0.6 ----- L3: 0.2 ----- L4: 0.2 ----- L1-L4:-0.2 Bone mineral density has: Decreased -9.5% since study of: 08/02/2017 Bone mineral density about the R hip (g/cm2): 0.779 Bone mineral density about the L hip (g/cm2): 0.803 T Score values are as follows: -----R Neck: -1.9 -----L Neck: -1.7 -----R Total: -1.0 -----L Total: -0.9 Bone mineral density has: Decreased -12.4% since study of: 08/02/2017 IMPRESSION: Osteopenia (T Score between -2.5 and -1) is now present. There is slightly increased risk of fracture and the patient may be considered for treatment. Re-Screen 2-5 years. NOTE: T-SCORE=SD OF THE YOUNG ADULT MEAN.
== END | disposition home or self-care (01) ==
LOC: RADBDWWP 14:36
PROVIDERS: ATTEND Obstetrics & Gynecology
DX: M85.89 Other specified disorders of bone density and structure, multiple sites (principal)
CPT/HCPCS: 77080

== ENCOUNTER → 2022-10-29 | Outpatient (CLI) | payer BC ==
--- NOTE | 2022-10-30 08:39 | MM ---
Reason for Exam: Screening (asymptomatic). Last mammogram was performed 1 year(s) and 3 month(s) ago. Patient History: Menarche at age 13. First Full-Term at age 20. Left ovary removed at age 46. Right ovary removed at age 46. Hysterectomy at age 46. Postmenopausal. Estrogen, starting at age 46 for 7 years. Risk Values: Delilah 5 year model risk: 1.3%. NCI Lifetime model risk: 5.5%. Prior Study Comparison: 05/26/2019 Bilateral Screening Mammogram, [facility]. 06/22/2020 Bilateral Screening Mammogram, [facility]. 08/11/2021 Bilateral Screening Mammogram, [facility]. Tissue Density: There are scattered fibroglandular densities. Findings: Analyzed By CAD. There is no suspicious group of microcalcifications or new suspicious mass in either breast. Stable benign calcifications within both breasts. Overall Assessment: Benign, BI-RAD 2 Management: Screening Mammogram of both breasts in 1 year. A clinical breast exam by your physician is recommended on an annual basis and results should be correlated with mammographic findings. Electronically signed and approved by: Williams Coburn D.O.
== END | disposition home or self-care (01) ==
LOC: RADMAMWWP 13:13
PROVIDERS: ATTEND Family Medicine
DX: Z12.31 Encounter for screening mammogram for malignant neoplasm of breast (principal); Z78.0 Asymptomatic menopausal state
CPT/HCPCS: 77063; 77067

== ENCOUNTER → 2023-11-05 | Outpatient (CLI) | payer OTHER ==
--- NOTE | 2023-11-06 15:24 | MM ---
Reason for Exam: Screening (asymptomatic). Last screening mammogram was performed 12 month(s) ago. Patient History: Menarche at age 13. First Full-Term at age 20. Left ovary removed at age 46. Right ovary removed at age 46. Hysterectomy at age 46. Postmenopausal. Estrogen, starting at age 46 for 7 years. Risk Values: Delilah 5 year model risk: 1.3%. NCI Lifetime model risk: 5.3%. Prior Study Comparison: 06/22/2020 Bilateral Screening Mammogram, [facility]. 08/11/2021 Bilateral Screening Mammogram, [facility]. 10/29/2022 Bilateral MG 3D screening mammo w/cad, [facility]. Tissue Density: There are scattered areas of fibroglandular density. Findings: Analyzed By CAD. There is no suspicious group of microcalcifications or new suspicious mass in either breast. Overall Assessment: Benign, BI-RAD 2 Management: Screening Mammogram of both breasts in 1 year. . Patient should continue monthly self-breast exams. A clinical breast exam by your physician is recommended on an annual basis. This exam should not preclude additional follow-up of suspicious palpable abnormalities. Note on Delilah scores and lifetime risk: 1. A Delilah score greater than 3% is considered moderate risk. If this is the case, consider specialist referral to assess eligibility for a risk reducing agent. 2. If overall lifetime risk for the development of breast cancer is 20% or higher, the patient may qualify for future screening with alternating mammogram and breast MRI. Electronically signed and approved by: Clarke Montalvo M.D. Radiologis
== END | disposition home or self-care (01) ==
LOC: RADMAMWWP 10:48
PROVIDERS: ATTEND Family Medicine
DX: Z12.31 Encounter for screening mammogram for malignant neoplasm of breast (principal); Z78.0 Asymptomatic menopausal state
CPT/HCPCS: 77063; 77067

== ENCOUNTER → 2024-02-12 | Outpatient (CLI) | payer OTHER ==
--- NOTE | 2024-02-12 14:28 | CT ---
EXAMINATION TYPE: CT chest wo con DATE OF EXAM: 02/12/2024 COMPARISON: 06/07/2013 HISTORY: SOB, right upper rib pain x1 year getting worse over 1-[address] DLP: 324.[address] of the chest was performed with lung and mediastinal window settings submitted. The la ck of contrast limits evaluation of the vascular, mediastinal and parenchymal structures including th e upper abdomen. LUNGS: The lungs are clear and free of infiltrate. No atelectasis. No pulmonary nodule or mass is de tected. No pleural effusion. No CT evidence of interstitial lung disease. MEDIASTINUM/YANE: Thoracic aorta is of normal caliber with limited evaluation given lack of contrast . The heart is not enlarged. No evidence for mediastinal mass. No lymph nodes greater than 1cm. UPPER ABDOMEN: No significant abnormality is seen. OTHER: Visualized ribs appear grossly unremarkable. If symptoms persist consider bone scan. IMPRESSION: Visualized ribs appear grossly unremarkable. If symptoms persist consider bone scan. The lungs are cl ear.
== END | disposition home or self-care (01) ==
LOC: RADCTMAIN 12:47
PROVIDERS: ATTEND Family Medicine
DX: R07.81 Pleurodynia (principal); R06.02 Shortness of breath
CPT/HCPCS: 71250

== ENCOUNTER → 2024-05-27 | Outpatient (CLI) | payer OTHER ==
[2024-05-27 18:18] LABS: NT-Pro-B-Type Natriuretic Pept <36 pg/mL (0-125)
[2024-05-28 00:08] LABS: Chol/HDL Ratio 2.68 Ratio; LDL Cholesterol,Calculated 102.3 mg/dL (0.0-131.0)
== END | disposition home or self-care (01) ==
LOC: LABWHC1 09:49
PROVIDERS: ATTEND Student in an Organized Health Care Education/Training Program
DX: Z13.6 Encounter for screening for cardiovascular disorders (principal); I50.9 Heart failure, unspecified; E78.5 Hyperlipidemia, unspecified; D72.9 Disorder of white blood cells, unspecified; E03.9 Hypothyroidism, unspecified; R79.89 Other specified abnormal findings of blood chemistry
CPT/HCPCS: 36415; 80061; 83036; 83880; 86141

== ENCOUNTER → 2024-06-23 | Outpatient (CLI) | payer OTHER ==
--- NOTE | 2024-06-23 16:53 | XR ---
EXAMINATION TYPE: XR shoulder complete LT DATE OF EXAM: 06/23/2024 4:45 PM COMPARISON: None available. CLINICAL INDICATION: Female, 63 years old with history of [id number] LT SHLD PAIN; H TECHNIQUE: XR shoulder complete LT; examined in AP, internally rotated and scapular Y projections. FINDINGS: No acute fracture or aggressive osseous lesion. Calcific densities adjacent to the greater tuberosity . 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 Partially visualized left lung infiltrate subcutaneous pathology. No active arthritic body. IMPRESSION: 1. No acute osseous pathology. 2. Calcific densities adjacent to the greater tuberosity suggestive of calcific tendinitis and likel y chronic rotator cuff pathology. [facility], , 06/23/2024 4:51 PM
== END | disposition home or self-care (01) ==
LOC: RADXRYALE 16:30
PROVIDERS: ATTEND Family Medicine
DX: M19.012 Primary osteoarthritis, left shoulder (principal)

== ENCOUNTER → 2024-11-18 | Outpatient (CLI) | payer MEDICARE ==
--- NOTE | 2024-11-18 15:14 | MM ---
Reason for Exam: Screening (asymptomatic). Last screening mammogram was performed 12 month(s) ago. Patient History: Menarche at age 13. First Full-Term at age 20. Left ovary removed at age 46. Right ovary removed at age 46. Hysterectomy at age 46. Postmenopausal. Estrogen, starting at age 46 for 7 years. Risk Values: Delilah 5 year model risk: 1.4%. NCI Lifetime model risk: 5.1%. Prior Study Comparison: 08/11/2021 Bilateral Screening Mammogram, [facility]. 10/29/2022 Bilateral MG 3D screening mammo w/cad, [facility]. 11/05/2023 Bilateral MG 3D screening mammo w/cad, [facility]. Tissue Density: There are scattered areas of fibroglandular density. Findings: Analyzed By CAD. There is no suspicious group of microcalcifications or new suspicious mass in either breast. Overall Assessment: Negative, BI-RAD 1 Management: Screening Mammogram of both breasts in 1 year. . Patient should continue monthly self-breast exams. A clinical breast exam by your physician is recommended on an annual basis. This exam should not preclude additional follow-up of suspicious palpable abnormalities. Note on Delilah scores and lifetime risk: 1. A Delilah score greater than 3% is considered moderate risk. If this is the case, consider specialist referral to assess eligibility for a risk reducing agent. 2. If overall lifetime risk for the development of breast cancer is 20% or higher, the patient may qualify for future screening with alternating mammogram and breast MRI. [facility], , 11/18/2024 3:12 PM. Electronically signed and approved by: Clarke Montalvo M.D. Radiologis
== END | disposition home or self-care (01) ==
LOC: RADMAMWWP 14:50
PROVIDERS: ATTEND Family Medicine
DX: Z12.31 Encounter for screening mammogram for malignant neoplasm of breast (principal); R92.323 Mammographic fibroglandular density, bilateral breasts; Z78.0 Asymptomatic menopausal state
CPT/HCPCS: 77063; 77067

== ENCOUNTER → 2024-11-24 | Outpatient (CLI) | payer MEDICARE ==
[2024-11-24 10:21] VITALS: BP 141/85; PULSE 78; RESP 16; TEMP 98.6
--- NOTE | 2024-11-24 11:14 | P.HPOB ---
History of Present Illness H&P Date: 11/24/24 Chief Complaint: The patient is here for her routine gynecologic exam. This is a 64-year-old with an LMP of 2006. The patient is here to establish with this office. It has been about 3 years since her last pelvic exam. She is status post DAINA/BSO for benign reasons. She also had a sacrospinous ligament suspension with anterior and posterior repairs in 2021 for prolapse. She is without gynecologic complaints. Review of Systems The patient has gained 10 pounds over the last year. She attributes the weight gain to less activity after chcf. She denies respiratory, cardiac, or G.I. problems. 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 Hypothyroidism and overactive bladder. Osteopenia. 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 History of Any Multi-Drug Resistant Organisms: None Reported Past Surgical History: Hysterectomy, Orthopedic Surgery, Tonsillectomy Additional Past Surgical History / Comment(s): DAINA/BSO in 2006. Sacrospinous ligament suspension with anterior and posterior repairs in 2021. Arthroscopy lt knee x2, rt knee X1. PAIN CLINIC PROCEDURES, COLONOSCOPY 2021(next after 5-7y). Past Anesthesia/Blood Transfusion Reactions: No Reported Reaction Past Psychological History: No Psychological Hx Reported Smoking Status: Former smoker Past Alcohol Use History: Occasional Additional Past Alcohol Use History / Comment(s): Quit smoking around 29yo, smoked for 10 yrs. 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 - Past Family History Sister(s) Family Medical History: Blood Disorder Additional Family Medical History / Comment(s): factor V leiden. Father Family Medical History: Blood Disorder, Diabetes Mellitus, Hypertension, Myocardial Infarction ([place]) Additional Family Medical History / Comment(s): Factor V Leiden mutation. . Paternal aunt had ovarian cancer. Mother Family Medical History: Hypertension, Liver Disease Additional Family Medical History / Comment(s): Cirrhosis of the liver, . Medications and Allergies Home Medications Medication Instructions Recorded Confirmed Type Levothyroxine Sodium [Synthroid] 137 mcg PO QAM 02/04/14 11/24/24 History [place]-3/Dha/Epa/Fish Oil [[place]-3 1 cap PO DAILY 11/24/24 11/24/24 History Fish Oil 1,000 mg Sfgl] Rosuvastatin [Crestor] 10 mg PO DAILY 11/24/24 11/24/24 History Solifenacin Succinate 5 mg PO DAILY 11/24/24 11/24/24 History Allergies Allergy/AdvReac Type Severity Reaction Status Date / Time No Known Allergies Allergy Verified 11/24/24 10:18 Exam Vital Signs Temp Pulse Resp BP Pulse Ox 11/24/24 10:19 98.6 F 78 16 141/85 98 Intake and Output 11/23/24 11/24/24 11/24/24 22:59 06:59 14:59 Other: Weight 93.894 kg Height 5 feet 4 inches, weight 207 pounds, BMI 35.5 This is a well-developed well-nourished white female who is alert and oriented times 3 in no acute distress. HEENT: Within normal limits. NECK: Supple without mass or thyromegaly. CHEST AND LUNGS: Clear to auscultation. HEART: Regular rate and rhythm. BREASTS: Are without mass or discharge. AXILLARY EXAM: Negative for adenopathy. BACK: Negative for CVA tenderness. ABDOMEN: Soft, nontender, without palpable masses. PELVIC EXAM: External genitalia appears normal with mild atrophy. Vagina appears normal with mild atrophy. There is no evidence of prolapse. Bimanual examination is negative for mass or tenderness. RECTAL EXAM: Rectovaginal exam is negative for mass or tenderness and is negative for occult blood. EXTREMITIES: Nontender. IMPRESSION: 1. 64-year-old menopausal female status post DAINA/BSO with later sacrospinous ligament suspension with anterior and posterior repairs for benign reasons, with normal gynecologic exam. 2. History of osteopenia. 3. Mildly elevated blood pressure today. PLAN: 1. Pap smears have been discontinued. 2. Self breast awareness was discussed with the patient. We have also discussed symptoms associated with inflammatory breast cancer. 3. Screening mammogram was done on 11/18/2024 and was benign. She will repeat this after 1 year. 4. Osteoporosis prevention was discussed. I have stressed the importance of adequate calcium, vitamin D and regular exercise. Recommended amounts of calcium and vitamin D were also discussed. Her last bone density test was in 2021. I have recommended repeating this and the order slip was given to the patient for this. 5. We have discussed her elevated blood pressure. She will check it at home on a regular basis and follow-up with her PCP for blood pressure elevations. 6. Weight control was discussed. I have stressed the importance of good nutrition, regular exercise, regular meals, and adequate fiber. 7. She was advised to return in one year for her annual well woman exam.
== END ==
LOC: WWCWWP 10:00
PROVIDERS: ATTEND Obstetrics & Gynecology
DX: Z01.419 Encounter for gynecological examination (general) (routine) without abnormal findings (principal); M85.80 Other specified disorders of bone density and structure, unspecified site; R03.0 Elevated blood-pressure reading, without diagnosis of hypertension; Z78.0 Asymptomatic menopausal state; Z90.710 Acquired absence of both cervix and uterus; Z90.722 Acquired absence of ovaries, bilateral; Z87.891 Personal history of nicotine dependence

== ENCOUNTER → 2024-12-09 | Outpatient (CLI) | payer MEDICARE ==
--- NOTE | 2024-12-09 09:45 | BD ---
EXAMINATION TYPE: Axial Bone Density DATE OF EXAM: 12/09/2024 CLINICAL HISTORY: 64 years old Female. ICD-10 CODE: Z780 POSTMENOPAUSAL STATUS , Additional History: Height: 63.5 in Weight: 206 lbs FRAX RISK QUESTIONS: Secondary Osteoporosis: 3. Menopause before 45: 37 total hysterectomy MEDICATIONS: Thyroid Medications: yes Which medication: Levothyroxine How Lon+ years EXAM MEASUREMENTS: Bone mineral densitometry was performed using the [employer] System. Bone mineral density as measured about the Lumbar spine is: ----- L1-L4(G/cm2): 1.141 T Score Values are as follows: ----- L1: -2.0 ----- L2: -1.0 ----- L3: 0.3 ----- L4: 0.9 ----- L1-L4: -0.3 Z Score Values are as follows: ----- L1: -1.4 ----- L2: -0.4 ----- L3: 0.9 ----- L4: 1.5 ----- L1-L4: 0.3 Bone mineral density has: Decreased -1.0% since study of: 08/18/2021 Bone mineral density about the R hip (g/cm2): 0.919 Bone mineral density about the L hip (g/cm2): 0.942 T Score values are as follows: -----R Neck: -1.4 -----L Neck: -1.5 -----R Total: -0.7 -----L Total: -0.5 Z Score values are as follows: -----R Neck: -0.5 -----L Neck: -0.7 -----R Total: -0.2 -----L Total: 0.0 Bone mineral density has: Increased 4.8% since study of: 08/18/2021 FRAX%s: The graph provided illustrates a 8.2% chance for a major osteoporotic fx and a 0.8% chance fo r the hips probability for fx in 10 years time. IMPRESSION: Osteopenia (T Score between -2.5 and -1). There is slightly increased risk of fracture and the patient may be considered for treatment. Re-Screen 2-5 years. NOTE: T-SCORE=SD OF THE YOUNG ADULT MEAN. [facility], , 12/09/2024 9:42 AM
== END | disposition home or self-care (01) ==
LOC: RADBDWWP 09:08
PROVIDERS: ATTEND Obstetrics & Gynecology
DX: M85.89 Other specified disorders of bone density and structure, multiple sites (principal); Z78.0 Asymptomatic menopausal state
CPT/HCPCS: 77080